=== PATIENT | female | born 1985 | race Two or more races ===

== ENCOUNTER 2022-12-13 13:31 | Observation (INO) | payer MEDICAID, OTHER ==
[2022-12-13 13:31] VITALS: BP 124/68
== END 2022-12-13 19:32 | disposition home or self-care (01) ==
LOC: ER 13:31 → LDRP 14:15
PROVIDERS: ADMIT Obstetrics & Gynecology; ATTEND Obstetrics & Gynecology
DX: O26.892 Other specified pregnancy related conditions, second trimester (principal); R10.30 Lower abdominal pain, unspecified; Z3A.25 25 weeks gestation of pregnancy
CPT/HCPCS: 59025; 76805; 81002; 94760; 99284; G0378